=== PATIENT | female | born 1980 | race Caucasian/White ===

== ENCOUNTER 2017-10-06 08:03 | Emergency (ER) | payer SELFPAY ==
[2017-10-06] MEDS: ALPRAZOLAM 0.25 MG TAB PO (09:04)
[2017-10-06] MEDS: IBUPROFEN 600 MG TAB PO (09:04)
[2017-10-06] MEDS: OXYCODONE/ACETAMINOPHEN (5/325) TAB PO (11:38)
== END 2017-10-06 12:09 | disposition home or self-care (01) ==
LOC: E/R 08:03
DX: S16.1XXA Strain of muscle, fascia and tendon at neck level, initial encounter (principal); S33.5XXA Sprain of ligaments of lumbar spine, initial encounter; V89.2XXA Person injured in unspecified motor-vehicle accident, traffic, initial encounter
CPT/HCPCS: 71045; 72100; 73562; 81025; 99284-25